=== PATIENT | female | born 1975 | race Caucasian/White ===

== ENCOUNTER 2019-03-20 12:02 | Inpatient (IN) | payer OTHER, SELFPAY ==
[2019-03-20] MEDS ORDERED: Fentanyl 100 MCG/2 ML VIAL ONE ×4 (12:57→16:36)
[2019-03-20] MEDS ORDERED: Bupivacaine 0.25% HCL 30 ML VIAL ONE (13:20)
[2019-03-20] MEDS ORDERED: cefOXitin 2 GM VIAL ONE (13:28)
[2019-03-20] MEDS ORDERED: Sodium Chloride 0.9% 100 ML ONE (13:28)
[2019-03-20] MEDS ORDERED: Dextrose 5% in Water 1,000 ML IV PRN (14:30)
[2019-03-20] MEDS ORDERED: hydrALAZINE 20 MG/ML VIAL SLOW IVP PRN (14:30)
[2019-03-20] MEDS ORDERED: Promethazine HCl 25 MG/ML VIAL IM PRN (14:30)
[2019-03-20] MEDS ORDERED: Dextrose 50% Abboject 50 ML SYRINGE SLOW IVP PRN (14:30)
[2019-03-20] MEDS ORDERED: Morphine 4 MG/ML VIAL SLOW IVP PRN (14:30)
[2019-03-20] MEDS ORDERED: HYDROcodone/Acetaminophen 10/325 mg Tablet PO PRN ×2 (14:30)
[2019-03-20] MEDS ORDERED: Ondansetron PF 4 MG/2 ML Vial IVP PRN (14:30)
[2019-03-20] MEDS ORDERED: Morphine 2 MG/ML SYRINGE SLOW IVP PRN (14:30)
[2019-03-20] MEDS ORDERED: Ondansetron PF 4 MG/2 ML Vial ONE (14:41)
[2019-03-20] MEDS ORDERED: Rocuronium Bromide 10 MG/ML (10ML VIAL) ONE (14:41)
[2019-03-20] MEDS ORDERED: PROPOFOL 200 MG/20 ML VIAL ONE (14:41)
[2019-03-20] MEDS ORDERED: Ketorolac Tromethamine 30 MG/ML VIAL ONE (14:41)
[2019-03-20] MEDS ORDERED: Metoclopramide HCl 10 MG/2 ML VIAL ONE (14:41)
[2019-03-20] MEDS ORDERED: Lidocaine 1% PF 5 ML VIAL ONE (14:41)
[2019-03-20] MEDS ORDERED: Glycopyrrolate 0.2 MG/ML 5 ML SYRINGE ONE (14:41)
[2019-03-20] MEDS ORDERED: Dexamethasone 20 MG/5 ML VIAL ONE (14:41)
[2019-03-20] MEDS ORDERED: Succinylcholine Chloride 20 MG/ML 10 ml SYRINGE FS ONE (14:41)
[2019-03-20] MEDS ORDERED: Ketorolac Tromethamine 30 MG/ML VIAL IVP SCH (18:00)
[2019-03-20] MEDS: D5 1/2 NS w/20 mEq KCL 1,000 ML IV SCH (18:25)
[2019-03-20] MEDS: Piperacillin/Tazobactam 3.375 GM in Sodium Chloride 0.9% 100 ML IVPB SCH (19:07)
[2019-03-20] MEDS: Famotidine 20 MG TAB PO SCH (19:51)
[2019-03-20] MEDS: Famotidine/PF 20 mg/2ml Vial SLOW IVP SCH (19:52)
[2019-03-20] MEDS: Ketorolac Tromethamine 30 MG/ML VIAL IVP SCH (19:53)
--- NOTE | 2019-03-20 20:33 | OP ---
DATE OF PROCEDURE: 03/20/2019 PREOPERATIVE DIAGNOSIS: Acute appendicitis. PROCEDURE PERFORMED: Laparoscopic appendectomy and drainage of periappendiceal abscess. INDICATIONS: This is a 43-year-old female with less than 24-hour history of right lower quadrant pain associated with nausea and vomiting. CT showed appendicitis findings, gangrenous perforated appendix with periappendiceal abscess. DESCRIPTION OF PROCEDURE: After informed consent was obtained, the patient was taken to the operating room and given general endotracheal anesthesia. Her abdomen was prepped and draped in usual fashion. Local anesthesia infiltrated subcutaneously and deep, and a subumbilical incision was performed. Subcu divided sharply. Fascia grasped and 2 stay sutures of 0 Vicryl placed in each side of midline. Midline was incised. Digital palpation revealed no local adhesions. A blunt 12 mm trocar inserted. Pneumoperitoneum was created to a pressure of 15 mmHg. A 0-degree laparoscope inserted under direct vision. Two 5 mm ports were placed, one suprapubic and one right lateral abdomen. There was cloudy peritoneal fluid around the right lower quadrant. The appendix was found, it was gangrenous. The mesoappendix divided with LigaSure. The base of appendix was divided with the linear 45 mm stapler. The appendix was placed in endosac, removed from the abdomen and the endosac. Hemostasis was assured. Purulent fluid removed from the pelvis, was sent for culture and sensitivity. The pelvis and abdomen were thoroughly irrigated with saline. A drain was placed and brought out through the suprapubic incision, placed within the pelvis and along the right gutter. Hemostasis was assured. Trocars and retractors removed. The fascia closed with interrupted 2-0 Vicryl suture. Skin closed with interrupted 4-0 Rapide. Dermabond applied. The patient tolerated the procedure well, transferred to Recovery in good condition. Sponge and needle count verified correct x2. Job ID: [id number]
[2019-03-21] MEDS: Piperacillin/Tazobactam 3.375 GM in Sodium Chloride 0.9% 100 ML IVPB SCH ×3 (00:31→12:46)
[2019-03-21] MEDS: Ketorolac Tromethamine 30 MG/ML VIAL IVP SCH ×2 (02:30→08:01)
[2019-03-21] MEDS: D5 1/2 NS w/20 mEq KCL 1,000 ML IV SCH ×2 (02:32→08:04)
[2019-03-21 06:07] LABS: #Lymphocytes 1.8 thou/uL (1.20-3.40); #Monocytes 0.5 thou/uL (0.11-0.59); #Neutrophils 8.1 thou/uL (1.40-6.50); %Basophils 0.2 % (0.0-1.0); %Lymphocytes 16.9 % (21.0-51.0); %Monocytes 4.5 % (0.0-10.0); %Neutrophils 78.4 % (42.0-75.0); Hemoglobin 10.9 g/dL (12.0-16.0); Mean Corpuscular HGB CONC 33.9 g/dL (32.0-36.0); Mean Corpuscular Hemoglobin 35.1 pg (27.0-31.0); Mean Platelet Volume 8.6 fL (7.4-10.4); Platelet Count 176 thou/uL (130-400); RBC Distribution Width 11.6 % (11.5-14.5); Red Blood Cell (RBC) Count 3.11 mill/uL (4.20-5.40); White Blood Cell (WBC) Count 10.4 thou/uL (4.8-10.8)
[2019-03-21 06:26] LABS: Anion Gap 8 mmol/L (10-20); BUN (Urea Nitrogen) 5 mg/dL (7.0-18.7); Calc. Creatinine Clearance 112 mL/min (70-130); Calcium 8.6 mg/dL (7.8-10.44); Carbon Dioxide 22 mmol/L (22-29); Chloride 111 mmol/L (98-107); Estimated GFR-MDRD Greater than 90; Glucose 117 mg/dL (70-105); Potassium 3.9 mmol/L (3.5-5.1); Sodium 137 mmol/L (136-145)
[2019-03-21] MEDS: Famotidine/PF 20 mg/2ml Vial SLOW IVP SCH (07:56)
[2019-03-21] MEDS: Famotidine 20 MG TAB PO SCH (08:05)
[2019-03-21] MEDS ORDERED: Enoxaparin Sodium 40 MG/0.4 ML SYRINGE SC SCH (09:00)
[2019-03-21 11:42] VITALS: BP 97/50; TEMP 98.2
[2019-03-21] MEDS ORDERED: FLU VACC QS2019-20(6MOS UP)/PF 60 MCG/0.5 ML SYRINGE IM ONE (21:00)
--- NOTE | 2019-03-22 11:40 | DIS ---
DATE OF ADMISSION: 03/20/2019 DATE OF DISCHARGE: 03/21/2019 DISCHARGE DIAGNOSIS: Gangrenous appendicitis with local perforation. PROCEDURES DURING ADMISSION: Laparoscopic appendectomy and drainage of periappendiceal abscess. HOSPITAL COURSE: The patient was admitted, taken to the operating room after getting IV antibiotics, underwent a laparoscopic appendectomy and drainage. Postoperatively, she has done well. She is tolerating a regular diet. Pain is controlled on p.o. medications. She is discharged home on hydrocodone, Zofran, and doxycycline. She will follow up with me in 2 weeks. Job ID: [id number]
== END 2019-03-21 14:10 | disposition home or self-care (01) | DRG 340 ==
LOC: SDC 12:02 → 3SE 17:57
PROVIDERS: ADMIT Surgery; ATTEND Surgery
PROC: 0DTJ4ZZ Resection of Appendix, Percutaneous Endoscopic Approach (ICD-10-PCS; principal; 2019-03-20)
PROC: 0W9J40Z Drainage of Pelvic Cavity with Drainage Device, Percutaneous Endoscopic Approach (ICD-10-PCS; 2019-03-20)
DX: K35.33 Acute appendicitis with perforation, localized peritonitis, and gangrene, with abscess (principal); F17.290 Nicotine dependence, other tobacco product, uncomplicated
CPT/HCPCS: 36415; 80048; 85025; 87070; 87077; 87186; 87205; 88304; J0694; J1100; J1650; J1885; J2001; J2270; J2405; J2543; J2704; J2765; J3010; J3490; S0020; S0028